=== PATIENT | male | born 1985 | race Caucasian/White ===

== ENCOUNTER 2021-03-22 07:11 | Day surgery (SDC) | payer MEDICAID, SELFPAY ==
[~2021-03-22] VITALS: Ht 175.3 cm; Wt 127.0 kg
[2021-03-22] MEDS ORDERED: BUPIVACAINE /PF 0.25% 30 ML VIAL INJ ONE (07:12)
[2021-03-22] MEDS ORDERED: methylPREDNISolone ACETATE 80 MG/ML IM ONE (07:12)
[2021-03-22] MEDS ORDERED: IOPAMIDOL 50 ML VIAL IV ONE (07:12)
[2021-03-22] MEDS ORDERED: LIDOCAINE 2%, 20 ML MDV INJ ONE (07:12)
[2021-03-22] MEDS ORDERED: MIDAZOLAM HCL 5 MG/5 ML VIAL ONE (09:19)
[2021-03-22] MEDS ORDERED: DIPHENHYDRAMINE INJ 50 MG/ML VIAL ONE (09:20)
[2021-03-22] MEDS ORDERED: FLUMAZENIL 0.1 MG/ML IVP ONE (09:27)
[2021-03-22] MEDS ORDERED: NALOXONE HCL 0.4 MG/ML AMP (NARCAN) ONE (09:27)
[2021-03-22 14:58] VITALS: BP_SYST 154
== END 2021-03-22 10:30 | disposition home or self-care (01) ==
LOC: SDS 07:11 → SMU 07:13 → SDS 10:30
PROVIDERS: ATTEND Internal Medicine
DX: M51.16 Intervertebral disc disorders with radiculopathy, lumbar region (principal); M79.10 Myalgia, unspecified site; Z20.822 Contact with and (suspected) exposure to COVID-19; Z79.899 Other long term (current) drug therapy
CPT/HCPCS: 36415; 62323; 87426; J1200; J2250; J2310; J3490; U0003; 76000; J1040; J2001; Q9967